=== PATIENT | female | born 1985 | race African-American/Black ===

== ENCOUNTER 2018-09-27 17:13 | Emergency (ER) | payer MEDICAID ==
[2018-09-27] MEDS ORDERED: DIPHENHYDRAMINE HCL 25 MG CAPSULE PO ONE (18:22)
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
[2018-09-27] MEDS ORDERED: METOCLOPRAMIDE HCL 10 MG TABLET PO ONE ×2 (18:23→18:31)
[2018-09-27] MEDS ORDERED: PROMETHAZINE HCL 25 MG TABLET PO ONE (18:24)
[2018-09-27 18:56] LABS: ABSOLUTE EOSINOPHILS # (AUTO) 0.1 10^3/uL (0.0-0.6); ABSOLUTE LYMPHOCYTES (AUTO) 2.3 10^3/uL (0.5-4.7); ABSOLUTE MONOCYTES (AUTO) 0.2 10^3/uL (0.1-1.4); ABSOLUTE NEUT (AUTO) 2.6 10^3/uL (1.7-8.2); BASOPHILS % (AUTO) 0.5 % (0-2); EOSINOPHILS % (AUTO) 2.2 % (0-6); HEMATOCRIT 39.6 % (36.0-47.0); HEMOGLOBIN 13.1 g/dL (12.0-15.5); LYMPHOCYTES % (AUTO) 44.1 % (13-45); MEAN CORPUSCULAR HEMOGLOBIN 28.1 pg (27.0-33.4); MEAN CORPUSCULAR VOLUME 85 fl (80-97); MONOCYTES % (AUTO) 4.4 % (3-13); PLATELET COUNT 193 10^3/uL (150-450); RED BLOOD COUNT 4.67 10^6/uL (3.72-5.28); SEGMENTED NEUTROPHILS % (AUTO) 48.8 % (42-78); TOTAL CELLS COUNTED % (AUTO) 100 %; WHITE BLOOD COUNT 5.2 10^3/uL (4.0-10.5)
[2018-09-27] MEDS ORDERED: KETOROLAC TROMETHAMINE INJ/PF 30 MG/1 ML SDV IV ONE (19:26)
[2018-09-27] MEDS ORDERED: METOCLOPRAMIDE HCL INJ/PF 10 MG/2 ML SDV IV ONE (19:26)
--- NOTE | 2018-09-27 19:30 | ER Document Report ---
ED Headache - General Chief Complaint: Headache Stated Complaint: HEADACHE Time Seen by Provider: 09/27/18 18:19 Notes: Patient is a 33-year-old female who presents with 2 distinct complaints. Her first complaint is regarding headache. She describes this is a global, throbbing headache that was gradual in onset over the last 12 hours, has been progressively worsening since onset. Describes this as similar to previous headaches that she has had in the past. She also reports vaginal bleeding as well as lower abdominal cramping. She states that this is been ongoing since waking up this morning. States she is concerned as she is not yet due for her menstrual cycle and this did start after having sexual intercourse for the first time in 5 months last night. Denies any dysuria. Describes the pain in the lower abdomen as being an aching, throbbing pain. Nothing improves or worsens his pain. Denies any history of abdominal surgeries. Has not seen her general physician regarding today's concerns. TRAVEL OUTSIDE OF THE [place] IN LAST 30 DAYS: No - Related Data Allergies/Adverse Reactions: shellfish derived Allergy (Verified 09/27/18 17:16) Past Medical History - General Information source: Patient - Social History Smoking Status: Current Every Day Smoker Chew tobacco use (# tins/day): No Frequency of alcohol use: None Drug Abuse: None Lives with: Family Family History: Reviewed & Not Pertinent Patient has suicidal ideation: No Patient has homicidal ideation: No Pulmonary Medical History: Reports: Hx Asthma Neurological Medical History: Reports: Hx Migraine Renal/ Medical History: Denies: Hx Peritoneal Dialysis Review of Systems - Review of Systems Notes: Constitutional: Negative for fever. HENT: Negative for sore throat. Eyes: Negative for visual changes. Cardiovascular: Negative for chest pain. Respiratory: Negative for shortness of breath. Gastrointestinal: Positive for lower abdominal pain Genitourinary: Negative for dysuria. Musculoskeletal: Negative for back pain. Skin: Negative for rash. Neurological: Positive for headache 10 point ROS negative except as marked above and in HPI. Physical Exam - Vital signs Vitals: Temp Pulse Resp BP Pulse Ox 98.3 F 69 16 107/74 100 09/27/18 17:31 09/27/18 17:31 09/27/18 17:31 09/27/18 17:31 09/27/18 17:31 Interpretation: Normal Notes: PHYSICAL EXAMINATION: GENERAL: Well-appearing, well-nourished and in no acute distress. HEAD: Atraumatic, normocephalic. EYES: Pupils equal round and reactive to light, extraocular movements intact, sclera anicteric, conjunctiva are normal. ENT: nares patent, oropharynx clear without exudates. Moist mucous membranes. NECK: Normal range of motion, supple without lymphadenopathy LUNGS: Breath sounds clear to auscultation bilaterally and equal. No wheezes rales or rhonchi. HEART: Regular rate and rhythm without murmurs ABDOMEN: Soft, nontender, normoactive bowel sounds. No guarding, no rebound. No masses appreciated. EXTREMITIES: Normal range of motion, no pitting or edema. No cyanosis. NEUROLOGICAL: Face symmetric. Tongue protrudes midline. Extraocular motions intact. Pupils are 2 mm and equally reactive. Normal speech, normal gait. 5 out of 5 strength in both the distal and proximal upper and lower extremities bilaterally. Sensation is grossly intact throughout. Finger to nose testing normal. Pronator drift normal. PSYCH: Normal mood, normal affect. SKIN: Warm, Dry, normal turgor, no rashes or lesions noted. Course - Re-evaluation Re-evalutation: 09/27/18 19:27 Patient presents with 2 distinct complaints: 1.) Acute headache: presentation of a headache that appears to be most consistent with tension versus migrainous type headache. Headache was not maximal in onset, patient has no focal neurologic deficits, no nuchal rigidity, vital signs within normal limits, no papilledema, and patient is overall well in appearance. Based on clinical history and examination I do not suspect an acute subarachnoid hemorrhage, dural venous sinus thrombosis, acute meningitis, or int ercranial mass. Given my low clinical suspicion for any acute life-threatening etiology, I do not feel advanced neuro imaging is indicated at this time. Patient had complete resolution of her headache after receiving metoclopramide 10 mg IV 2.) Lower abdominal cramping and vaginal bleeding: Presentation is most consistent with dysfunctional uterine bleeding and otherwise well-appearing patient. Her hemoglobin was within normal limits. She is not . No tachycardia or hypotension. Examination is otherwise unremarkable. She denies bleeding through more than 2 pads an hour at any point in time. No indication for ultrasound at this time based on benign exam, vitals and laboratories. Her main concern was that this was irregular bleeding as she just had her period 2 weeks ago. Of note she did have sexual intercourse for the first time last night in over 5 months and believes that this may be related. Her abdominal exam is completely benign without any localized tenderness. Urinalysis unremarkable. I have encouraged outpatient OB follow-up At this time will discharge with return precautions and follow-up recommendations. Verbal discharge instructions given a the bedside and opportunity for questions given. Medication warnings reviewed. Patient is in agreement with this plan and has verbalized understanding of return precautions and the need for primary care follow-up in the next 24-72 hours. - Vital Signs Vital signs: Temp Pulse Resp BP Pulse Ox 98.2 F 68 16 100/61 99 09/27/18 21:02 09/27/18 21:02 09/27/18 21:02 09/27/18 21:02 09/27/18 21:02 - Laboratory Result Diagrams: 09/27/18 18:40 Laboratory results interpreted by me: 09/27/18 19:55 Urine Blood SMALL H Urine Nitrite POSITIVE H Urine Urobilinogen 2.0 H Discharge - Discharge Clinical Impression: Bilateral lower abdominal cramping, Vaginal bleeding Acute headache Qualifiers: Headache type: unspecified Intractability: not intractable Qualified Code(s): R51 - Headache Condition: Good Disposition: HOME, SELF-CARE Additional Instructions: You have been seen in the Emergency Department (ED) for a headache. Please use Tylenol (acetaminophen) or Motrin (ibuprofen) as needed for symptoms, but only as written on the box. As we have discussed, please follow up with your primary care doctor as soon as possible regarding today's ED visit and your headache symptoms. Call your doctor or return to the ED if you have a worsening headache, sudden and severe headache, confusion, slurred speech, facial droop, weakness or numbness in any arm or leg, extreme fatigue, or other symptoms that concern you. You were seen today for dysfunctional uterine bleeding. This is when you have vaginal bleeding and abdominal cramping off of your normal menstrual cycle. You need to follow-up with [facility] or your primary care physician the next 1-3 days. Return immediately if you worsening pain, you began bleeding through more than 2 pads per hour for more than 3 hours, you pass out, have persistent vom iting, develop a fever greater than 100.4F, or any other symptoms that are concerning to you.
[2018-09-27 20:21] LABS: APPEARANCE,URINE CLEAR; BILIRUBIN,URINE NEGATIVE (NEGATIVE); COLOR,URINE YELLOW; GLUCOSE, URINE NEGATIVE (NEGATIVE); KETONES,URINE NEGATIVE (NEGATIVE); LEUKOCYTE ESTERASE,URINE NEGATIVE (NEGATIVE); NITRITE,URINE POSITIVE (NEGATIVE); PROTEIN,URINE NEGATIVE (NEGATIVE); URINE SPECIFIC GRAVITY 1.026
[2018-09-27 21:17] VITALS: BP 100/61
== END 2018-09-27 21:24 | disposition home or self-care (01) ==
LOC: ER 17:13
DX: R51 Headache (principal); N93.9 Abnormal uterine and vaginal bleeding, unspecified; R10.30 Lower abdominal pain, unspecified; J45.909 Unspecified asthma, uncomplicated; F17.200 Nicotine dependence, unspecified, uncomplicated; Z91.013 Allergy to seafood
CPT/HCPCS: 99284; 96374; 96375; 36415; 84703; 85025; 81001; J3490 ×2; J1885; J2765

== ENCOUNTER 2018-12-03 11:46 | Emergency (ER) | payer MEDICAID ==
--- NOTE | 2018-12-03 12:25 | ER Document Report ---
ED General - General Chief Complaint: Dizziness Stated Complaint: DIZZY,NAUSEA,RIGHT SIDE PAIN Time Seen by Provider: 12/03/18 12:24 Notes: Patient is a [] that presents to the emergency department for chief complaint of []. [] Past Medical History: [] Past Surgical History: [] Social History: [] Family History: Reviewed and noncontributory for presenting illness Allergies: Reviewed, see documented allergy list. REVIEW OF SYSTEMS: Other than noted above, the 12 point review of systems was reviewed with the patient and were negative, all pertinent findings are included in the HPI. PHYSICAL EXAMINATION: Vital signs reviewed, nursing noted reviewed. GENERAL: Well-appearing, well-nourished and in no acute distress. HEAD: Atraumatic, normocephalic. EYES: Eyes appear normal, extraocular movements intact, sclera anicteric, conjun ctiva are normal. ENT: nares patent, oropharynx clear without exudates. Moist mucous membranes. NECK: Normal range of motion, supple without lymphadenopathy LUNGS: Breath sounds clear to auscultation bilaterally and equal. No wheezes rales or rhonchi. HEART: Regular rate and rhythm without murmurs ABDOMEN: Soft, nontender, normoactive bowel sounds. No rebound, guarding, or rigidity. No masses appreciated. EXTREMITIES: Nontender, good range of motion, no pitting or edema. NEUROLOGICAL: No focal neurological deficits. Moves all extremities spontaneously Motor and sensory grossly intact on exam. PSYCH: Normal mood, normal affect. SKIN: Warm, Dry, normal turgor, no rashes or lesions noted on exposed skin TRAVEL OUTSIDE OF THE [place] IN LAST 30 DAYS: No - Related Data Allergies/Adverse Reactions: shellfish derived Allergy (Verified 12/03/18 11:48) Past Medical History - Social History Smoking Status: Current Every Day Smoker Chew tobacco use (# tins/day): No Frequency of alcohol use: weekends Drug Abuse: None Family History: Reviewed & Not Pertinent Patient has suicidal ideation: No Patient has homicidal ideation: No Pulmonary Medical History: Reports: Hx Asthma Neurological Medical History: Reports: Hx Migraine Renal/ Medical History: Denies: Hx Peritoneal Dialysis Physical Exam - Vital signs Vitals: Temp Pulse Resp BP Pulse Ox 98.7 F 73 18 152/74 H 100 12/03/18 11:50 12/03/18 11:50 12/03/18 11:50 12/03/18 11:50 12/03/18 11:50 Course - Vital Signs Vital signs: Temp Pulse Resp BP Pulse Ox 98.7 F 73 18 152/74 H 100 12/03/18 11:50 12/03/18 11:50 12/03/18 11:50 12/03/18 11:50 12/03/18 11:50
[2018-12-03] MEDS ORDERED: NORMAL SALINE 1000 ML 1,000 ML IV ONE (12:38)
[2018-12-03] MEDS ORDERED: METOCLOPRAMIDE HCL INJ/PF 10 MG/2 ML SDV IV ONE (12:39)
--- NOTE | 2018-12-03 12:40 | ER Document Report ---
ED Medical Screen (RME) - General Chief Complaint: Dizziness Stated Complaint: DIZZY,NAUSEA,RIGHT SIDE PAIN Time Seen by Provider: 12/03/18 12:24 Notes: Patient is a 33-year-old female that presents to the emergency department for chief complaint of lightheadedness, near syncope, nausea vomiting and generalized weakness. Reports the symptoms have been going on for 4 days now, she also has been having some right lower quadrant and pelvic pain. ROS: Other than noted above, the 12 point review of systems was reviewed with the patient and were negative, all pertinent findings are included in the HPI. PHYSICAL EXAMINATION: Vital signs reviewed. GENERAL: Well-appearing, well-nourished and in no acute distress. HEAD: Atraumatic, normocephalic. EYES: Pupils equal round extraocular movements intact, conjunctiva are normal. ENT: Nares patent NECK: Normal range of motion CV: Heart regular rate and rhythm LUNGS: No respiratory distress Musculoskeletal: Normal range of motion NEUROLOGICAL: Normal speech PSYCH: Normal mood, normal affect. MDM: Patient seen and examined for rapid initial assessment. Vital signs reviewed. A comprehensive ED assessment and evaluation of the patient, analysis of test results and completion of the medical decision making process will be conducted by additional ED providers. *Note is created using voice recognition software and may contain spelling, syntax or grammatical errors. TRAVEL OUTSIDE OF THE [place] IN LAST 30 DAYS: No - Related Data Allergies/Adverse Reactions: shellfish derived Allergy (Verified 12/03/18 12:26) Past Medical History - Social History Chew tobacco use (# tins/day): No Frequency of alcohol use: weekends Drug Abuse: None Pulmonary Medical History: Reports: Hx Asthma Neurological Medical History: Reports: Hx Migraine Renal/ Medical History: Denies: Hx Peritoneal Dialysis Physical Exam - Vital signs Vitals: Temp Pulse Resp BP Pulse Ox 98.7 F 73 18 152/74 H 100 12/03/18 11:50 12/03/18 11:50 12/03/18 11:50 12/03/18 11:50 12/03/18 11:50 Course - Vital Signs Vital signs: Temp Pulse Resp BP Pulse Ox 98.7 F 73 18 152/74 H 100 12/03/18 11:50 12/03/18 11:50 12/03/18 11:50 12/03/18 11:50 12/03/18 11:50
[2018-12-03] MEDS ORDERED: ACETAMINOPHEN 325 MG TABLET PO ONE (13:42)
--- NOTE | 2018-12-03 13:44 | ER Document Report ---
ED GI/ - General Chief Complaint: Dizziness Stated Complaint: DIZZY,NAUSEA,RIGHT SIDE PAIN Time Seen by Provider: 12/03/18 12:24 Primary Care Provider: [facility] [Provider Group] - Follow up tomorrow [facility] [NO LOCAL MD] - Follow up as needed Mode of Arrival: Ambulatory Information source: Patient Notes: Patient presents complaining of 4-day history of feeling lightheaded with nausea right lower pelvic pain and urinary frequency. Patient does complain of decreased appetite. Patient denies any fever. Patient is uncertain if she may be . TRAVEL OUTSIDE OF THE [place] IN LAST 30 DAYS: No - HPI Patient complains to provider of: Pelvic pain. No: Vomiting Onset: Other - 4 day Timing/Duration: Gradual Quality of pain: Achy Pain Level: 3 Location: Pelvis Menstrual period history: Missed Sexual history: Active, Unprotected intercourse Associated symptoms: denies: Urinary hesitancy, Urinary frequency, Urinary retention, Urinary urgency Exacerbated by: Denies Relieved by: Denies Similar symptoms previously: No Recently seen / treated by doctor: No - Related Data Allergies/Adverse Reactions: shellfish derived Allergy (Verified 12/03/18 12:26) Past Medical History - General Information source: Patient - Social History Smoking Status: Current Every Day Smoker Chew tobacco use (# tins/day): No Frequency of alcohol use: weekends Drug Abuse: None Occupation: none Family History: Reviewed & Not Pertinent Patient has suicidal ideation: No Patient has homicidal ideation: No Pulmonary Medical History: Reports: Hx Asthma Neurological Medical History: Reports: Hx Migraine Renal/ Medical History: Denies: Hx Peritoneal Dialysis Surgical Hx: Negative Review of Systems - Review of Systems Constitutional: No symptoms reported. denies: Fever, Recent illness EENT: No symptoms reported Cardiovascular: Lightheaded. denies: Chest pain Respiratory: No symptoms reported. denies: Cough Gastrointestinal: Abdominal pain, Nausea, Poor appetite. denies: Diarrhea, Vom iting Genitourinary: Dysuria, Frequency Female Genitourinary: No symptoms reported. denies: Vaginal discharge, Vaginal bleeding Musculoskeletal: No symptoms reported Skin: No symptoms reported Hematologic/Lymphatic: No symptoms reported Neurological/Psychological: No symptoms reported Physical Exam - Vital signs Vitals: Temp Pulse Resp BP Pulse Ox 98.7 F 73 18 152/74 H 100 12/03/18 11:50 12/03/18 11:50 12/03/18 11:50 12/03/18 11:50 12/03/18 11:50 - General General appearance: Appears well, Alert In distress: None - HEENT Head: Normocephalic, Atraumatic Eyes: Normal Conjunctiva: Normal Nasal: Normal Mouth/Lips: Normal Mucous membranes: Normal Neck: Normal, Supple. No: Lymphadenopathy - Respiratory Respiratory status: No respiratory distress Chest status: Nontender Breath sounds: Normal. No: Rales, Rhonchi, Stridor, Wheezing Chest palpation: Normal - Cardiovascular Rhythm: Regular Heart sounds: S1 appreciated, S2 appreciated Murmur: No - Abdominal Inspection: Normal Distension: No distension Bowel sounds: Normal Tenderness: Tender - R lower pelvic tenderness. No: McBurney's point, Cassidy's sign Organomegaly: No organomegaly - Back Back: Normal, Nontender. No: CVA tenderness - Extremities General upper extremity: Normal inspection, Nontender, Normal ROM General lower extremity: Normal inspection, Nontender, Normal ROM - Neurological Neuro grossly intact: Yes Cognition: Normal Carrie Coma Scale Eye Opening: Spontaneous Carrie Coma Scale Verbal: Oriented Carrie Coma Scale Motor: Obeys Commands Carrie Coma Scale Total: 15 - Psychological Associated symptoms: Normal affect, Normal mood - Skin Skin Temperature: Warm Skin Moisture: Dry Skin Color: Normal Course - Re-evaluation Re-evalutation: 12/03/18 17:03 Discussed with patient findings today worrisome for UTI in the setting of . Patient without any fever or leukocytosis. No concern for sepsis at this time. Patient encouraged to follow-up with an PODODERMATOLOGIST provider to establish care. Discussed worsening signs of infection that patient should return immediately for such as fever, vomiting, flank pain or lack of improvement of her urinary symptoms. - Vital Signs Vital signs: Temp Pulse Resp BP Pulse Ox 98.4 F 62 20 101/58 L 100 12/03/18 17:47 12/03/18 17:47 12/03/18 17:47 12/03/18 17:47 12/03/18 17:47 - Laboratory Result Diagrams: 12/03/18 14:10 12/03/18 14:10 Laboratory results interpreted by me: 12/03/18 12/03/18 12/03/18 12:40 14:10 14:10 Sodium 135.9 L Serum HCG, Qual POSITIVE H Beta HCG, Quant Urine Ketones 20 H Urine Blood SMALL H Ur Leukocyte Esterase LARGE H 12/03/18 14:10 Sodium Serum HCG, Qual Beta HCG, Quant 77247.00 H Urine Ketones Urine Blood Ur Leukocyte Esterase Labs- Entire Visit 12/03/18 12/03/18 12/03/18 12:40 14:10 14:10 WBC 5.3 RBC 4.31 Hgb 12.3 Hct 36.4 MCV 85 MCH 28.5 MCHC 33.7 RDW 14.0 Plt Count 153 Seg Neutrophils % 66.9 Lymphocytes % 26.0 Monocytes % 6.0 Eosinophils % 0.7 Basophils % 0.4 Absolute Neutrophils 3.5 Absolute Lymphocytes 1.4 Absolute Monocytes 0.3 Absolute Eosinophils 0.0 Absolute Basophils 0.0 Sodium 135.9 L Potassium 4.2 Chloride 105 Carbon Dioxide 25 Anion Gap 6 BUN 12 Creatinine 0.88 Est GFR ( Amer) > 60 Est GFR (Non-Af Amer) > 60 Glucose 77 Calcium 9.3 Total Bilirubin 0.9 Direct Bilirubin 0.0 Neonat Total Bilirubin Not Reportable Neonat Direct Bilirubin Not Reportable Neonat Indirect Bili Not Reportable AST 23 ALT 41 Alkaline Phosphatase 58 Total Protein 6.8 Albumin 4.1 Serum HCG, Qual Beta HCG, Quant Total Beta HCG Urine Color YELLOW Urine Appearance CLOUDY Urine pH 6.0 Ur Specific [place] 1.021 Urine Protein NEGATIVE Urine Glucose (UA) NEGATIVE Urine Ketones 20 H Urine Blood SMALL H Urine Nitrite NEGATIVE Urine Bilirubin NEGATIVE Urine Urobilinogen NEGATIVE Ur Leukocyte Esterase LARGE H Urine WBC (Auto) >182 Urine RBC (Auto) 22 Squamous Epi Cells Auto 5 Urine Mucus (Auto) MOD Urine Ascorbic Acid NEGATIVE Epi Cells (Wet Prep) Bacteria (Wet Prep) Trichomonas (Wet Prep) Vaginal WBC Vaginal RBC Vaginal Yeast Chlamydia DNA (PCR) N.gonorrhoeae DNA (PCR) Blood Type Rhogam Indicated 12/03/18 12/03/18 12/03/18 14:10 14:10 14:22 WBC RBC Hgb Hct MCV MCH MCHC RDW Plt Count Seg Neutrophils % Lymphocytes % Monocytes % Eosinophils % Basophils % Absolute Neutrophils Absolute Lymphocytes Absolute Monocytes Absolute Eosinophils Absolute Basophils Sodium Potassium Chloride Carbon Dioxide Anion Gap BUN Creatinine Est GFR ( Amer) Est GFR (Non-Af Amer) Glucose Calcium Total Bilirubin Direct Bilirubin Neonat Total Bilirubin Neonat Direct Bilirubin Neonat Indirect Bili AST ALT Alkaline Phosphatase Total Protein Albumin Serum HCG, Qual POSITIVE H Beta HCG, Quant 08877.00 H Total Beta HCG POSITIVE Urine Color Urine Appearance Urine pH Ur Specific [place] Urine Protein Urine Glucose (UA) Urine Ketones Urine Blood Urine Nitrite Urine Bilirubin Urine Urobilinogen Ur Leukocyte Esterase Urine WBC (Auto) Urine RBC (Auto) Squamous Epi Cells Auto Urine Mucus (Auto) Urine Ascorbic Acid Epi Cells (Wet Prep) Bacteria (Wet Prep) Trichomonas (Wet Prep) Vaginal WBC Vaginal RBC Vaginal Yeast Chlamydia DNA (PCR) NOT DETECTED N.gonorrhoeae DNA (PCR) NOT DETECTED Blood Type Rhogam Indicated 12/03/18 12/03/18 14:22 15:21 WBC RBC Hgb Hct MCV MCH MCHC RDW Plt Count Seg Neutrophils % Lymphocytes % Monocytes % Eosinophils % Basophils % Absolute Neutrophils Absolute Lymphocytes Absolute Monocytes Absolute Eosinophils Absolute Basophils Sodium Potassium Chloride Carbon Dioxide Anion Gap BUN Creatinine Est GFR ( Amer) Est GFR (Non-Af Amer) Glucose Calcium Total Bilirubin Direct Bilirubin Neonat Total Bilirubin Neonat Direct Bilirubin Neonat Indirect Bili AST ALT Alkaline Phosphatase Total Protein Albumin Serum HCG, Qual Beta HCG, Quant Total Beta HCG Urine Color Urine Appearance Urine pH Ur Specific [place] Urine Protein Urine Glucose (UA) Urine Ketones Urine Blood Urine Nitrite Urine Bilirubin Urine Urobilinogen Ur Leukocyte Esterase Urine WBC (Auto) Urine RBC (Auto) Squamous Epi Cells Auto Urine Mucus (Auto) Urine Ascorbic Acid Epi Cells (Wet Prep) 4+ EPITHELIALS SEEN Bacteria (Wet Prep) 4+ BACTERIA SEEN Trichomonas (Wet Prep) NO TRICHOMONAS SEEN Vaginal WBC RARE WBCS SEEN Vaginal RBC NO RBCS SEEN Vaginal Yeast NO YEAST SEEN Chlamydia DNA (PCR) N.gonorrhoeae DNA (PCR) Blood Type A POSITIVE Rhogam Indicated RHOGAM NOT INDICATED - Diagnostic Test Radiology reviewed: Reports reviewed - EKG Interpretation by In EKG shows normal: Sinus rhythm Rate: Normal Additional EKG results interpreted by me: 12/03/18 16:[address] elevation, QTc 427 Discharge - Discharge Clinical Impression: Intrauterine Urinary tract infection Qualifiers: Urinary tract infection type: site unspecified Hematuria presence: with hematuria Qualified Code(s): N39.0 - Urinary tract infection, site not specified Condition: Stable Disposition: HOME, SELF-CARE Instructions: Cephalexin ([facility]), Pelvic Pain in ([facility]), Rocephin ([facility]), Urinary Tract Infection ([facility]) Additional Instructions: Return immediately for any new or worsening symptoms Followup with your primary care provider, call tomorrow to make a followup appointment Urine culture is pending, we will call if you need any different treatment. Follow-up with the PODODERMATOLOGIST provider at the health department or with [facility] to establish care. Prescriptions: Cephalexin Monohydrate [Keflex 500 mg Capsule] 500 mg PO Q6H 7 Days capsule Metoclopramide HCl [Reglan] 10 mg PO Q8 PRN #8 tablet PRN Reason: Forms: Smoking Cessation Education Referrals: [facility] [NO LOCAL MD] - Follow up as needed [facility] [Provider Group] - Follow up tomorrow
[2018-12-03 14:22] LABS: ABSOLUTE LYMPHOCYTES (AUTO) 1.4 10^3/uL (0.5-4.7); ABSOLUTE MONOCYTES (AUTO) 0.3 10^3/uL (0.1-1.4); ABSOLUTE NEUT (AUTO) 3.5 10^3/uL (1.7-8.2); BASOPHILS % (AUTO) 0.4 % (0-2); EOSINOPHILS % (AUTO) 0.7 % (0-6); HEMATOCRIT 36.4 % (36.0-47.0); HEMOGLOBIN 12.3 g/dL (12.0-15.5); MEAN CORPUSCULAR HEMOGLOBIN 28.5 pg (27.0-33.4); MEAN CORPUSCULAR HGB CONC 33.7 g/dL (32.0-36.0); MEAN CORPUSCULAR VOLUME 85 fl (80-97); PLATELET COUNT 153 10^3/uL (150-450); RED BLOOD COUNT 4.31 10^6/uL (3.72-5.28); SEGMENTED NEUTROPHILS % (AUTO) 66.9 % (42-78); TOTAL CELLS COUNTED % (AUTO) 100 %; WHITE BLOOD COUNT 5.3 10^3/uL (4.0-10.5)
[2018-12-03 14:24] LABS: APPEARANCE,URINE CLOUDY; BILIRUBIN,URINE NEGATIVE (NEGATIVE); COLOR,URINE YELLOW; GLUCOSE, URINE NEGATIVE (NEGATIVE); KETONES,URINE 20 mg/dL (NEGATIVE); LEUKOCYTE ESTERASE,URINE LARGE (NEGATIVE); NITRITE,URINE NEGATIVE (NEGATIVE); PROTEIN,URINE NEGATIVE (NEGATIVE); URINE SPECIFIC GRAVITY 1.021; UROBILINOGEN,URINE NEGATIVE mg/dL (<2.0)
[2018-12-03 14:41] LABS: ALANINE AMINOTRANSFERASE 41 U/L (9-52); ALBUMIN 4.1 g/dL (3.5-5.0); ALKALINE PHOSPHATASE 58 U/L (38-126); ANION GAP 6 (5-19); ASPARTATE AMINO TRANSFERASE 23 U/L (14-36); BILIRUBIN,TOTAL 0.9 mg/dL (0.2-1.3); BLOOD UREA NITROGEN 12 mg/dL (7-20); CALCIUM 9.3 mg/dL (8.4-10.2); CARBON DIOXIDE 25 mmol/L (22-30); CHLORIDE 105 mmol/L (98-107); GLUCOSE 77 mg/dL (75-110); POTASSIUM 4.2 mmol/L (3.6-5.0); SODIUM 135.9 mmol/L (137-145); TOTAL PROTEIN 6.8 g/dL (6.3-8.2)
[2018-12-03 14:41] LABS: BACTERIA (WET MOUNT) 4+ BACTERIA SEEN; EPITHELIALS (WET MOUNT) 4+ EPITHELIALS SEEN; RBCS (WET MOUNT) NO RBCS SEEN; T.VAGINALIS (WET MOUNT) NO TRICHOMONAS SEEN; WBCS (WET MOUNT) RARE WBCS SEEN; YEAST (WET MOUNT) NO YEAST SEEN
[2018-12-03 16:03] LABS: CHLAM PCR NOT DETECTED (NOT DETECT); GON PCR NOT DETECTED (NOT DETECT)
[2018-12-03] MEDS ORDERED: CEFTRIAXONE 1 GM/D5W RTU 1 GM/50 ML RTUPB IV ONE (16:06)
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
[2018-12-03 17:54] VITALS: BP 101/58
--- NOTE | 2018-12-03 21:25 | EKG REPORT ---
SEVERITY:- NORMAL ECG - SINUS RHYTHM : Confirmed by: Janet Watt MD 03-Dec-2018 21:24:04
== END 2018-12-03 17:55 | disposition home or self-care (01) ==
LOC: ER 11:46
DX: O23.40 Unspecified infection of urinary tract in pregnancy, unspecified trimester (principal); O26.899 Other specified pregnancy related conditions, unspecified trimester; R42 Dizziness and giddiness; R10.2 Pelvic and perineal pain; R11.0 Nausea; R63.0 Anorexia; O99.330 Smoking (tobacco) complicating pregnancy, unspecified trimester; O99.519 Diseases of the respiratory system complicating pregnancy, unspecified trimester; J45.909 Unspecified asthma, uncomplicated; Z91.013 Allergy to seafood; Z3A.00 Weeks of gestation of pregnancy not specified
CPT/HCPCS: 93005; 99284; 96361; 96375; 96365; 86900; 86901; 36415; 87086; 87210; 84702; 84703; 85025; 87088; 80053; 81001; 87186; 87491; 87591; 76817; 93010; J3490; J2765; J7030; J0696

== ENCOUNTER 2019-02-20 04:51 | Emergency (ER) | payer MEDICAID ==
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
[2019-02-20] MEDS ORDERED: ONDANSETRON HCL INJ/PF 4 MG/2 ML SDV IV ONE (07:24)
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
[2019-02-20 08:55] VITALS: BP 124/74
== END 2019-02-20 08:55 | disposition home or self-care (01) ==
LOC: ER 04:51
DX: S10.93XA Contusion of unspecified part of neck, initial encounter (principal); M54.2 Cervicalgia; Y08.89XA Assault by other specified means, initial encounter
CPT/HCPCS: 99284; 96374; 70498; J2405